=== PATIENT | female | born 1980 | race Caucasian/White ===

== ENCOUNTER 2022-11-20 06:00 | Day surgery (SDC) | payer BC ==
[2022-11-15 12:23] VITALS: BMI 28.1
[2022-11-16 08:21] LABS: Mean Corpuscular HGB CONC 33.6 g/dL (32.0-36.0); Mean Corpuscular Hemoglobin 30.2 pg (27.0-33.0); Mean Corpuscular Volume 89.9 fl (81.6-98.3); Mean Platelet Volume 9.2 fl (7.4-10.4); Platelet Count 305 10x3/uL (150-450); RBC Distribution Width 13.1 % (11.5-14.5); Red Blood Cell (RBC) Count 4.96 10x6/uL (3.90-5.03); White Blood Cell (WBC) Count 7.4 10x3/uL (3.5-10.5)
[2022-11-16 08:36] LABS: BHCG - Serum Negative (NEGATIVE); Pregs Control Background? CLEAR/WHITE (CLR/WHITE); Pregs Control Bar Appear? YES (CONTROL BAR)
[2022-11-20] MEDS ORDERED: Gabapentin 300 MG CAP ONE (06:55)
[2022-11-20] MEDS ORDERED: CeleCOXIB 100 MG CAP ONE (06:56)
[2022-11-20] MEDS ORDERED: Famotidine/PF 20 mg/2ml Vial ONE (06:56)
[2022-11-20] MEDS ORDERED: Lidocaine 1% PF 5 ML VIAL ONE (07:05)
[2022-11-20] MEDS ORDERED: Rocuronium Bromide 10 MG/ML (10ML VIAL) ONE (07:05)
[2022-11-20] MEDS ORDERED: PROPOFOL 20 ML ONE (07:07)
[2022-11-20] MEDS ORDERED: Fentanyl 100 MCG/2 ML VIAL ONE ×2 (07:08→09:30)
[2022-11-20] MEDS ORDERED: CEFAZOLIN 2 GM VIAL ONE (07:17)
[2022-11-20] MEDS ORDERED: Midazolam HCl 2 mg/2 ml Vial ONE (07:27)
[2022-11-20] MEDS ORDERED: Clindamycin/D5W 900 mg/50 ml Premix Bag ONE (07:35)
[2022-11-20] MEDS ORDERED: Levofloxacin 500 mg/D5W 100 ml Premix Bag ONE (07:35)
[2022-11-20] MEDS ORDERED: Ondansetron PF 4 MG/2 ML Vial ONE (08:39)
[2022-11-20] MEDS ORDERED: Glycopyrrolate 0.2 MG/ML 5 ML SYRINGE ONE (08:39)
[2022-11-20] MEDS ORDERED: Ketorolac Tromethamine 30 MG/ML VIAL ONE (08:39)
[2022-11-20] MEDS ORDERED: Dexamethasone 4 mg/ml Vial ONE (08:39)
[2022-11-20] MEDS ORDERED: HYDROcodone/Acetaminophen 5/325 mg Tablet ONE (10:14)
== END 2022-11-20 12:12 | disposition home or self-care (01) ==
LOC: CSHSDC 06:00
PROVIDERS: ATTEND Student in an Organized Health Care Education/Training Program
PROC: 0UT94ZZ Resection of Uterus, Percutaneous Endoscopic Approach (ICD-10-PCS; principal; 2022-11-20)
PROC: 0UT74ZZ Resection of Bilateral Fallopian Tubes, Percutaneous Endoscopic Approach (ICD-10-PCS; principal; 2022-11-20)
DX: D06.9 Carcinoma in situ of cervix, unspecified (principal); N80.03 Adenomyosis of the uterus; D28.2 Benign neoplasm of uterine tubes and ligaments; Z79.899 Other long term (current) drug therapy; Z88.8 Allergy status to other drugs, medicaments and biological substances
CPT/HCPCS: 84703; 85027; 86850; 86900; 86901; 88307; J1100; J1885; J1956; J2250; J2405; J2704; J3010; J3490; S0028